=== PATIENT | male | born 1980 | race Caucasian/White ===

== ENCOUNTER 2018-04-18 18:25 | Emergency (ER) | payer BC ==
[2018-04-18] MEDS ORDERED: ONDANSETRON 4 MG/2 ML VIAL IVP STA (18:41)
[2018-04-18] MEDS ORDERED: MORPHINE SULFATE 2 MG/ML SYRINGE IVP STA (18:42)
[2018-04-18] MEDS ORDERED: PROPOFOL 10 MG/ML 20 ML VIAL IV STA (18:44)
--- NOTE | 2018-04-18 18:48 | ED ---
Upper Extremity HPI - General Source: patient, RN notes reviewed Mode of arrival: ambulatory Limitations: no limitations <James Elizabeth - Last Filed: 04/18/18 19:38> <Lauro Shay - Last Filed: 04/18/18 20:04> - General Chief Complaint: Extremity Injury, Upper Stated Complaint: Dislocated shoulder Time Seen by Provider: 04/18/18 18:37 - History of Present Illness Initial Comments: 37-year-old male presents emergency Department chief complaint of left shoulder dislocation. Patient had a prior right shoulder dislocation. Patient states his playing volleyball went to dive for the ball and felt a pop. Patient states he has no movement at this time. Patient states she is in extreme pain. Patient offers no other complaints. (James Elizabeth) - Related Data Previous Rx's Medication Instructions Recorded Acetaminophen-Codeine 300-30mg 1 tab PO Q4H PRN #15 tablet 04/18/18 [Tylenol #3] Ibuprofen [Motrin] 600 mg PO Q8HR PRN #30 tab 04/18/18 Ondansetron Odt [Zofran Odt] 4 mg PO Q8HR PRN #10 tab 04/18/18 Allergies Allergy/AdvReac Type Severity Reaction Status Date / Time acetaminophen [From [place]] AdvReac Nausea & Verified 04/18/18 18:37 Vomiting hydrocodone [From [place]] AdvReac Nausea & Verified 04/18/18 18:37 Vomiting Review of Systems ROS Other: All systems not noted in ROS Statement are negative. <James Elizabeth - Last Filed: 04/18/18 19:38> ROS Other: All systems not noted in ROS Statement are negative. <Lauro Shay - Last Filed: 04/18/18 20:04> ROS Statement: Those systems with pertinent positive or pertinent negative responses have been documented in the HPI. Past Medical History Past Medical History: No Reported History History of Any Multi-Drug Resistant Organisms: None Reported Past Surgical History: Orthopedic Surgery Additional Past Surgical History / Comment(s): right shoulder Past Psychological History: No Psychological Hx Reported Smoking Status: Former smoker Past Alcohol Use History: Occasional Past Drug Use History: None Reported <James Elizabeth - Last Filed: 04/18/18 19:38> General Exam Limitations: no limitations General appearance: alert, in no apparent distress Head exam: Present: atraumatic, normocephalic, normal inspection Neck exam: Present: normal inspection, full ROM. Absent: tenderness, meningismus, lymphadenopathy Respiratory exam: Present: normal lung sounds bilaterally. Absent: respiratory distress, wheezes, rales, rhonchi, stridor Cardiovascular Exam: Present: regular rate, normal rhythm, normal heart sounds. Absent: systolic murmur, diastolic murmur, rubs, gallop, clicks Extremities exam: Present: other (Left shoulder there is obvious dislocation, there is a sulcus radial pulses are equal bilaterally) <James Elizabeth M - Last Filed: 04/18/18 19:38> Course <James Elizabeth - Last Filed: 04/18/18 19:38> <Lauro Shay - Last Filed: 04/18/18 20:04> Vital Signs 04/18/18 04/18/18 04/18/18 18:34 19:14 19:19 Temperature 98.0 F Pulse Rate 73 82 86 Respiratory 20 16 79 H Rate Blood Pressure 112/71 149/89 131/88 O2 Sat by Pulse 98 100 96 Oximetry 04/18/18 04/18/18 04/18/18 19:25 19:29 20:00 Temperature 98.8 F Pulse Rate 79 72 79 Respiratory 16 16 16 Rate Blood Pressure 135/87 129/84 126/84 O2 Sat by Pulse 97 95 96 Oximetry - Reevaluation(s) Reevaluation #1: 04/18/18 20:03 PA supervision: I did personally do a [id number] evaluation patient did discuss the findings with the patient and later with his the patient did have a subluxed left shoulder anteriorly. After the patient was adequately sedated the shoulder was reduced by my physician talent assistant James. Patient tolerated this well. I did perform the sedation. I did supervise the shoulder reduction. I do agree with the assessment and plan. Patient will be discharged and follow-up with orthopedics (Lauro Shay) Procedures - Procedural Sedation Procedural Sedation Start Time: 19:10 Procedural Sedation Stop Time: 20:00 Indications: fracture/dislocation reduction ASA Class: I Mallampati Airway Score: 1 Preparation: radiographer cardiac catheterization applied, pulse oximeter, capnometry used, supplemental O2 applied, reversal agents at bedside, suction/airway equipment at bedside, IV secured IV Propofol Dose (mgs): 100 Complications: none Patient Tolerated Procedure: well (The patient required no intervention other than supplemental oxygen or dysuria at all patient's he maintained his pulse oxygen saturation as well as his blood pressure and heart rate.) <JaspalLauro - Last Filed: 04/18/18 20:04> Medical Decision Making <James Elizabeth - Last Filed: 04/18/18 19:38> <JaspalLauro - Last Filed: 04/18/18 20:04> - Medical Decision Making 37-year-old male presents from for left shoulder injury. Patient will anterior dislocation. Patient was sedated, shoulder was reduced and patient was placed in a sling. (James Elizabeth) Disposition Is patient prescribed a controlled substance at d/c from ED?: Yes When asked, does pt state using other controlled substances?: No If prescribed controlled substance>3 days was MAPS reviewed?: Prescribed <3 Days If opioid is for acute pain is fill amount 7 days or less?: Yes If Rx opioid, was Start Talking consent form obtained?: Yes Time of Disposition: 19:39 <James Elizabeth - Last Filed: 04/18/18 19:38> Is patient prescribed a controlled substance at d/c from ED?: Yes When asked, does pt state using other controlled substances?: No If prescribed controlled substance>3 days was MAPS reviewed?: Prescribed <3 Days If opioid is for acute pain is fill amount 7 days or less?: Yes If Rx opioid, was Start Talking consent form obtained?: Yes <JaspalLauro - Last Filed: 04/18/18 20:04> Clinical Impression: Dislocation of left shoulder joint Disposition: HOME SELF-CARE Condition: Good Instructions: Shoulder Dislocation (ED) Additional Instructions: Please return to the Emergency Department if symptoms worsen or any other concerns. Prescriptions: Acetaminophen-Codeine 300-30mg [Tylenol #3] 1 tab PO Q4H PRN #15 tablet PRN Reason: pain Ibuprofen [Motrin] 600 mg PO Q8HR PRN #30 tab PRN Reason: Pain Ondansetron Odt [Zofran Odt] 4 mg PO Q8HR PRN #10 tab PRN Reason: Nausea Referrals: Kwesi Quarles MD [Primary Care Provider] - 1-2 days Angie Lyn DO [Doctor of Osteopathic Medicine] - 1-2 days
--- NOTE | 2018-04-18 19:00 | XR ---
EXAMINATION TYPE: XR shoulder complete LT DATE OF EXAM: 04/18/2018 CLINICAL HISTORY: Left shoulder pain and limited range of motion after injury. TECHNIQUE: Three views of the left shoulder are obtained. COMPARISON: None. FINDINGS: There is no acute fracture evident in the left shoulder. The acromioclavicular joint spac e appear within normal limits. Humeral head is anteriorly and inferiorly and medially positioned rela tive to the osseous glenoid. The visualized ribs are intact and unremarkable. IMPRESSION: There is anterior glenohumeral joint dislocation. No acute fracture is evident.
[2018-04-18 19:26] VITALS: RESP 16
[2018-04-18] MEDS ORDERED: KETOROLAC 30 MG/ML 1 ML VIAL IVP STA (19:38)
--- NOTE | 2018-04-18 19:42 | XR ---
EXAMINATION TYPE: XR shoulder limited LT DATE OF EXAM: 04/18/2018 CLINICAL HISTORY: Post reduction left shoulder dislocation. TECHNIQUE: Single frontal view of the left shoulder is obtained. COMPARISON: Left shoulder x-ray earlier today.. FINDINGS: There is improvement positioning of humeral head relative to glenoid after reduction. IMPRESSION: There is interval successful reduction of anterior shoulder glenohumeral joint dislocati on.
[2018-04-18 20:02] VITALS: BP 126/84; PULSE 79; TEMP 98.8
== END 2018-04-18 20:16 | disposition home or self-care (01) ==
LOC: EC 18:25
DX: S43.015A Anterior dislocation of left humerus, initial encounter (principal); Z87.891 Personal history of nicotine dependence; Z98.890 Other specified postprocedural states; Z88.5 Allergy status to narcotic agent; Z88.8 Allergy status to other drugs, medicaments and biological substances; X50.1XXA Overexertion from prolonged static or awkward postures, initial encounter; W18.39XA Other fall on same level, initial encounter; Y92.89 Other specified places as the place of occurrence of the external cause; Y93.68 Activity, volleyball (beach) (court)
CPT/HCPCS: 73030; 73020; 99283; 23650; 99152; 99153 ×2; 96374; 96375 ×2; J2405; J1885; J2270; J2704

== ENCOUNTER → 2018-12-17 | Outpatient (CLI) | payer BC ==
[2018-12-17 16:49] LABS: Basophils # (A) 0.1 k/uL (0-0.2); Basophils % (A) 1 %; Eosinophils # (A) 0.1 k/uL (0-0.7); Eosinophils % (A) 2 %; HCT 48.3 % (39.0-53.0); HGB 15.9 gm/dL (13.0-17.5); Lymphocytes % (A) 29 %; MCH 29.8 pg (25.0-35.0); MCV 90.2 fL (80.0-100.0); Mean Platelet Volume 6.5; Monocytes # (A) 0.4 k/uL (0-1.0); Monocytes % (A) 5 %; Neutrophils # (A) 4.2 k/uL (1.3-7.7); Neutrophils % (A) 60 %; Platelet Count 240 k/uL (150-450); RBC 5.36 m/uL (4.30-5.90); RDW 12.2 % (11.5-15.5); WBC 6.9 k/uL (3.8-10.6)
[2018-12-17 16:58] LABS: Potassium 4.9 mmol/L (3.5-5.1)
== END | disposition home or self-care (01) ==
LOC: LABPAT 16:12
PROVIDERS: ATTEND Orthopaedic Surgery
DX: Z01.812 Encounter for preprocedural laboratory examination (principal); M75.42 Impingement syndrome of left shoulder
CPT/HCPCS: 36415; 80051; 85025

== ENCOUNTER 2018-12-22 06:50 | Day surgery (SDC) | payer BC ==
[2018-12-21 09:40] VITALS: BMI 29.0
--- NOTE | 2018-12-21 14:04 | HP ---
HISTORY AND PHYSICAL DATE OF SURGERY: 12/22/2018 Misael Mosqueda is a 38-year-old patient seen with progressive left shoulder pain. Treatment options were discussed with him. He elected to proceed with arthroscopy. Consent was obtained. PAST MEDICAL HISTORY: Noncontributory. PAST SURGICAL HISTORY: Right shoulder arthroscopy. . DAILY MEDICATIONS: None. ALLERGIES: LORTAB. SOCIAL HISTORY: Denies tobacco use. PHYSICAL EVALUATION OF THE LEFT SHOULDER: Flexion is 150 degrees, abduction is 130 degrees, external rotation is 30 degrees with some weakness. There is tenderness along the anterolateral acromion rotator cuff insertion site. Impingement sign is positive at 90 degrees. Distal neurovascular exam is intact. . LEFT SHOULDER RADIOGRAPHS: Revealed cystic changes of the greater tuberosity. An MRI of the left shoulder revealed a partial rotator cuff tear as well as a labral tear. IMPRESSION: Left shoulder impingement with rotator cuff tear and labral tear. PLAN: Left shoulder arthroscopy with subacromial decompression, possible arthroscopic rotator cuff repair and debridement. MMODL / IJN: [id number] /
[~2018-12-22 06:50] MED LIST: DEXAMETHASONE SOD PHOSPHATE 10 MG/ML 1 ML VIAL IV ONE; HYDROmorphone 0.5 MG/0.5 ML SYRINGE IVP PRN; LACTATED RINGERS 1,000 ML IV SCH; LIDOCAINE 1% 20 ML VIAL (10MG/ML) FOR IV START INTRADERMA PRN; ONDANSETRON 4 MG/2 ML VIAL IVP ONE; SCOPOLAMINE 1.5MG/72HR PATCH TRANSDERM ONE; ceFAZolin IN SWFI 2 GM/20 ML SYRINGE IVP ONE
[2018-12-22] MEDS ORDERED: MIDAZOLAM 2 MG/2 ML VIAL IV ONE (07:50)
[2018-12-22] MEDS ORDERED: fentaNYL (PF) 50 MCG/ML 2 ML AMP IV ONE (07:50)
[2018-12-22] MEDS ORDERED: LIDOCAINE 1% INJ 10MG/ML (20 ML MDV) ONE (08:24)
[2018-12-22] MEDS ORDERED: ROPIVACAINE 5 MG/ML 30 ML VIAL ONE (08:24)
[2018-12-22] MEDS ORDERED: PROPOFOL 10 MG/ML 20 ML VIAL IV ONE (08:24)
[2018-12-22] MEDS ORDERED: fentaNYL (PF) 50 MCG/ML 2 ML AMP ONE (08:24)
[2018-12-22] MEDS ORDERED: NEOSTIGMINE 1 MG/ML 10 ML VIAL ONE (08:24)
[2018-12-22] MEDS ORDERED: ROCURONIUM BROMIDE 10 MG/ML 10 ML VIAL IV ONE (08:24)
[2018-12-22] MEDS ORDERED: GLYCOPYRROLATE 0.2 MG/ML 2 ML VIAL ONE (08:24)
[2018-12-22] MEDS ORDERED: MIDAZOLAM 2 MG/2 ML VIAL ONE (08:24)
--- NOTE | 2018-12-22 09:46 | P.OP ---
Date of Procedure: 12/22/18 Preoperative Diagnosis: Left shoulder impingement Postoperative Diagnosis: 1. Left shoulder partial rotator cuff tear 2. Left shoulder impingement 3. Left shoulder acromioclavicular joint osteoarthritis 4. Left shoulder partial long head biceps tendon tear 5. Left shoulder superficial anterior labral tear Procedure(s) Performed: 1. Left shoulder arthroscopic subacromial decompression 2. Left shoulder arthroscopic debridement rotator cuff tear 3. Left shoulder arthroscopic Ileana procedure 4. Left shoulder arthroscopic biceps tenotomy 5. Left shoulder arthroscopic debridement superficial labral tear Implants: None Anesthesia: GETA, regional (Interscalene) Surgeon: Jeremy Valles Estimated Blood Loss (ml): 5 Pathology: none sent Condition: stable Disposition: PACU Indications for Procedure: 38-year-old patient seen with progressive left shoulder pain. We discussed treatment options, he elected to proceed with arthroscopy. Operative Findings: See description of procedure Description of Procedure: Patient underwent an interscalene block by department of anesthesia. The patient was then taken to the operative suite. The patient underwent a general anesthetic by the department of anesthesia. The patient was placed into a lateral position and secured. There was appropriate padding of the bony prominence. Left shoulder was then prepped and draped in normal sterile orthopedic fashion. We placed the extremity in 10 pounds of longitudinal traction. A posterior incision was now made for a posterior working portal site. The trocar and cannula were inserted into the glenohumeral joint. Arthroscopy was initiated. Spinal needle was now inserted anteriorly, to ascertain the anterior working portal site. An incision was now made in that area, a trocar was inserted followed by a probe. There was some superficial tearing of the anterior labrum which did appear to be somewhat diminutive as well. There was some hyperemia and partial tearing long head biceps tendon. There was some mild grade 1 chondromalacia of the humeral head. The superior posterior and inferior labrum were all probed and found to be stable. I debrided that superficial labral tear down to stable tissue. I performed an arthroscopic biceps tenotomy. At this point instruments were now removed from the glenohumeral joint. Utilizing the posterior working portal site, the trocar and cannula were inserted into the subacromial space. Arthroscopy initiated. I made an incision 2 fingerbreadths lateral to the acromion. I introduced my trocar followed by my [employer] ablator. I now began ablating thick subacromial bursal tissue, which exposed the undersurface of the anterior acromion. There was diminished subacromial space. There was a very prominent anterior acromion. A motorized bur was introduced and a subacromial decompression was performed. I also excised some osteophytes off the inferior aspect of the distal clavicle. The AC joint was visualized and noted to be fairly arthritic. The motorized bur was introduced in the anterior portal site and a Ileana procedure was performed without difficulty, decompressing the AC joint nicely. I turned my attention to the rotator cuff. There was some superficial tearing along the anterior aspect of the supraspinatus. I used the motorized shaver and debrided the partial tear down to stable tissue. I thoroughly probed the area and did not find any full-thickness perforation. The partial superficial tear was made about 25% of the tendon and the remaining 75% tear appeared very stable to thorough probing. I injected 1 mL Renue intra-articular. Instruments now removed from the portal sites. All portal sites were approximated with nylon suture. Sterile dressings were applied followed by a shoulder sling. Ruiz BANKS assisted in this complex case. The patient was awakened, transferred to a bed, and taken to recovery in stable condition.
[2018-12-22 09:51] VITALS: TEMP 97.5
--- NOTE | 2018-12-22 10:36 | P.ONQ ---
Anesthesiology Proc Note - PNB - Peripheral Nerve Block Performed Left Interscalene Single Time Out Performed: Yes Procedure Start Time: 07:50 Procedure Stop Time: 08:02 Indication: Acute Post-Operative Pain, Analgesia, Requested by physician Sedation Type: Sedate with meaningful contact maintained Preparation: Sterile Prep Position: Prone Catheter: None Needle Types: On-Q Needle Size: 50mm (2") Technique: Ultrasound Injectate: 0.5% Ropivacaine (see comment for volume) (total 20ml) Blood Aspirated: No Pain Paresthesia on Injection Noted: No Resistance on Injection: Normal Events: Uneventful and Well Tolerated
[2018-12-22 10:50] VITALS: RESP 16
[2018-12-22 11:49] VITALS: BP 112/71
[2018-12-22 12:34] VITALS: PULSE 62
== END 2018-12-22 12:54 | disposition home or self-care (01) ==
LOC: OR 06:50
PROVIDERS: ATTEND Orthopaedic Surgery
DX: M75.112 Incomplete rotator cuff tear or rupture of left shoulder, not specified as traumatic (principal); S43.492A Other sprain of left shoulder joint, initial encounter; M75.42 Impingement syndrome of left shoulder; M19.012 Primary osteoarthritis, left shoulder; S46.112A Strain of muscle, fascia and tendon of long head of biceps, left arm, initial encounter; Z88.5 Allergy status to narcotic agent
CPT/HCPCS: 64415; 29826; 29824; 29823; C1765; J2250; J1100; J2710; J2405; J2001; J3010; J2795; J2704; J0690

== ENCOUNTER → 2025-05-12 | Outpatient (CLI) | payer BC ==
--- NOTE | 2025-05-14 15:53 | US ---
EXAMINATION TYPE: US kidneys/renal and bladder DATE OF EXAM: 05/12/2025 COMPARISON: NONE CLINICAL INDICATION: Male, 44 years old with history of [id number] ELEVATED SERUM CREATININE; TECHNIQUE: Grayscale imaging of the bilateral kidneys and urinary bladder: FINDINGS: EXAM MEASUREMENTS: Right Kidney: 11.6x5.8x5.3 cm Left Kidney: 11.2x5.8x5.3 cm Final Cigar And Box Examiner notes: Slightly limited due to overlying bowel Right Kidney: No hydronephrosis or masses seen Left Kidney: No hydronephrosis or masses seen Bladder: wnl Bilateral Jets seen: right, limited IMPRESSION: No hydronephrosis. [facility], Workstation: [id number], 05/14/2025 3:51 PM
== END | disposition home or self-care (01) ==
LOC: RADUSWWP 09:47
PROVIDERS: ATTEND Internal Medicine
DX: R79.89 Other specified abnormal findings of blood chemistry (principal)
CPT/HCPCS: 76770